=== PATIENT | male | born 1970 | race Asian ===

== ENCOUNTER 2018-03-24 11:47 | Emergency (ER) | payer OTHER ==
[~2018-03-24] VITALS: Ht 182.9 cm; Wt 94.8 kg
[2018-03-24 11:40] VITALS: TEMP 98.4
[~2018-03-24 11:47] MED LIST: AMOX500T5 PO; CLARITIN RDT5 MG PO; IBUPROFEN PO; PREDNISONE10 M1 OR
[2018-03-24 12:14] LABS: PLATELET COUNT 325 K/uL (142-355)
[2018-03-24 13:09] LABS: POTASSIUM 3.7 mmol/L (3.6-5.2)
[2018-03-24 14:45] VITALS: BP 124/80
== END 2018-03-24 15:20 | disposition short-term general hospital (02) ==
LOC: ED 11:47
DX: J39.0 Retropharyngeal and parapharyngeal abscess (principal)
CPT/HCPCS: 36415; 80053; 85027; 87081; 87880; 96361; 96365; 99284; J0295

== ENCOUNTER 2018-03-24 15:24 | Outpatient (CLI) | payer OTHER | END 2018-03-24 15:54 | disposition short-term general hospital (02) | LOC: AMB 15:24 | DX: J39.0 Retropharyngeal and parapharyngeal abscess (principal) | CPT/HCPCS: A0425; A0429 ==

== ENCOUNTER 2020-12-22 11:41 | Emergency (ER) | payer OTHER ==
[~2020-12-22] VITALS: Ht 182.9 cm; Wt 94.8 kg
[2020-12-22 11:41] VITALS: TEMP 99
[2020-12-22 11:56] VITALS: BP 147/85
[2020-12-22 12:12] LABS: PLATELET COUNT 321 K/uL (142-355)
[2020-12-22 12:24] LABS: SODIUM 142 mmol/L (136-145)
== END 2020-12-22 12:02 | disposition home or self-care (01) ==
LOC: ED 11:41
PROVIDERS: Family Medicine
DX: F13.10 Sedative, hypnotic or anxiolytic abuse, uncomplicated (principal); F14.10 Cocaine abuse, uncomplicated
CPT/HCPCS: 36415; 80053; 84484; 85027; 93005; 96374; 99284; J3490

== ENCOUNTER 2021-12-16 20:21 | Emergency (ER) | payer OTHER ==
[~2021-12-16] VITALS: Ht 182.9 cm; Wt 94.8 kg
[2021-12-16 21:00] LABS: PLATELET COUNT 260 K/uL (142-355)
[2021-12-16 21:12] LABS: POTASSIUM 3.9 mmol/L (3.6-5.2)
[2021-12-16 23:00] VITALS: BP 123/68; TEMP 98.2
== END 2021-12-16 23:09 | disposition home or self-care (01) ==
LOC: ED 20:21
PROVIDERS: Emergency Medicine Emergency Medical Services
DX: S20.219D Contusion of unspecified front wall of thorax, subsequent encounter (principal); S80.02XD Contusion of left knee, subsequent encounter; S80.01XD Contusion of right knee, subsequent encounter; F19.10 Other psychoactive substance abuse, uncomplicated; V49.9XXD Car occupant (driver) (passenger) injured in unspecified traffic accident, subsequent encounter; Y92.488 Other paved roadways as the place of occurrence of the external cause
CPT/HCPCS: 36415; 80053; 80307; 80320; 81000; 82150; 83690; 84484; 85027; 85610; 96360; 96361; 96375; 99284; J1885; Q9963

== ENCOUNTER 2022-04-14 06:45 | Emergency (ER) | payer OTHER ==
[~2022-04-14] VITALS: Ht 185.4 cm; Wt 104.3 kg
[2022-04-14] MEDS ORDERED: BENAZEPRIL HYDR10 MG PO (07:04)
[2022-04-14] MEDS ORDERED: LEVO-T25 MCG PO (07:05)
[2022-04-14 07:28] LABS: PLATELET COUNT 326 K/uL (142-355)
[2022-04-14 07:53] LABS: POTASSIUM 4.3 mmol/L (3.6-5.2)
[2022-04-14 08:08] LABS: PARTIAL THROMBOPLASTIN TIME 28.3 SECONDS (24.5-33.6)
[2022-04-14 08:30] VITALS: BP 143/98; TEMP 98
== END 2022-04-14 08:32 | disposition still patient (30) ==
LOC: ED 06:45
PROVIDERS: Emergency Medicine
DX: M79.18 Myalgia, other site (principal); V43.52XA Car driver injured in collision with other type car in traffic accident, initial encounter; Y93.89 Activity, other specified; Y92.89 Other specified places as the place of occurrence of the external cause
CPT/HCPCS: 36415; 80053; 82550; 84484; 85027; 85610; 85730; 93005; 96374; 96375; 99284; J2175; J2405; J3490